=== PATIENT | female | born 2000 | race African-American/Black ===

== ENCOUNTER 2023-10-14 07:37 | Emergency (ER) | payer OTHER ==
[~2023-10-14] VITALS: Ht 162.6 cm; Wt 137.0 kg
[2023-10-14 07:43] VITALS: O2SAT 100
[2023-10-14 08:47] LABS: BASOPHILS % 0.9 % (0.0-2.0); EOSINOPHILS % 0.7 % (0.0-5.0); HEMATOCRIT. 38.7 % (36.0-48.0); HEMOGLOBIN. 12.7 g/dL (12.0-16.0); LYMPHOCYTES % 19.7 % (20.0-50.0); MEAN CORPUSCULAR HEMOGLOBIN 29.2 pg (28.0-32.0); MEAN CORPUSCULAR HGB CONC 32.9 g/dL (31.0-37.0); MEAN CORPUSCULAR VOLUME 88.7 fL (81.0-99.0); MEAN PLATELET VOLUME 9.3 fl (7.4-10.4); MONOCYTES % 6.5 % (2.0-8.0); NEUTROPHILS % 72.2 % (40.0-76.0); PLATELET 315 x1000/uL (130-400); RED BLOOD CELL COUNT 4.36 mill/uL (4.2-5.4); RED CELL DISTRIBUTION WIDTH 14.8 % (11.6-14.6); WHITE BLOOD COUNT 9.2 x1000/uL (4.5-11.0)
[2023-10-14 08:53] LABS: CARBON DIOXIDE 28 mEq/L (21-32); CHLORIDE 106 mEq/L (98-107); POTASSIUM 3.7 mEq/L (3.5-5.1); SODIUM 140 mEq/L (136-145)
[2023-10-14 08:54] LABS: CALCIUM 9.5 mg/dL (8.7-10.4)
[2023-10-14 08:58] LABS: CREATININE 0.7 mg/dL (0.6-1.0)
[2023-10-14 08:59] LABS: GLUCOSE 106 mg/dL (70-105); UREA NITROGEN BLOOD 6 mg/dL (9-23)
[2023-10-14 09:00] LABS: ALANINE AMINOTRANSFERASE 33 IU/L (10-49); ALBUMIN 4.7 g/dL (3.2-4.8); ASPARTATE AMINOTRANSFERASE 22 IU/L (<34)
[2023-10-14 09:01] LABS: BILIRUBIN DIRECT 0.2 mg/dL (<=3.0); BILIRUBIN TOTAL 0.6 mg/dL (0.1-1.0); PROTEIN TOTAL 7.7 g/dL (6.0-8.3)
[2023-10-14 09:12] LABS: HCG SCREEN NEGATIVE
[2023-10-14 09:13] LABS: PROTHROMBIN TIME 11.2 sec (9.6-11.0)
[2023-10-14 09:16] LABS: CLARITY URINE CLOUDY (CLEAR); COLOR URINE YELLOW (YELLOW); GLUCOSE URINE NEGATIVE (NEGATIVE); KETONES URINE TRACE (NEGATIVE); LEUKOCYTE ESTERASE URINE 2+ (NEGATIVE); NITRITE URINE POSITIVE (NEGATIVE); OCCULT BLOOD URINE NEGATIVE (NEGATIVE); PH URINE 5.5 (4.5-8.0); PROTEIN URINE TRACE (NEGATIVE); SPECIFIC GRAVITY URINE 1.019 (1.005-1.030)
[2023-10-14 09:27] LABS: SQUAMOUS EPITHELIAL CELL URINE 3+ /lpf (RARE/1+)
[2023-10-14 09:29] LABS: WBC URINE TNTC /hpf (0-2)
[2023-10-14 09:30] LABS: BACTERIA URINE 4+
[2023-10-14 09:31] LABS: RBC URINE 0-2 /hpf (0-2)
[2023-10-14] MEDS ORDERED: SULF1TAB48 MT (09:52)
[2023-10-14] MEDS: SULFAMETHOXAZOLE/TRIMETHOPRIM 800/160MG TABLET PO ONE (10:01)
[2023-10-14 10:14] VITALS: BP 155/87; PULSE 95; RESP 16; TEMP 98.4
== END 2023-10-14 10:15 ==
LOC: ER 07:37
DX: N39.0 Urinary tract infection, site not specified (principal); E11.9 Type 2 diabetes mellitus without complications; Z98.890 Other specified postprocedural states
CPT/HCPCS: 36415; 80048; 80076; 81003; 82962; 84703; 85025; 93005; 99284